=== PATIENT | female | born 1995 | race Caucasian/White ===

== ENCOUNTER 2019-04-13 16:44 | Emergency (ER) | payer SELFPAY ==
[~2019-04-13] VITALS: Ht 152.4 cm; Wt 75.9 kg
[2019-04-13 17:01] VITALS: TEMP 98.6
[2019-04-13] MEDS ORDERED: FOLIC ACID 11 MG/TA1 PO (17:05)
[2019-04-13] MEDS ORDERED: [UNRECOGNIZED DRUG - OTHER] (17:06)
[2019-04-13 17:23] LABS: COLLECTION METHOD CLEAN CATCH
[2019-04-13 17:34] LABS: MUCOUS Present /lpf; PH 6 (5-8); SQUAMOUS EPITHELIAL 0-2 /hpf; URINE APPEARANCE Hazy; URINE BACTERIA None Seen /hpf; URINE BILIRUBIN Negative (NEGATIVE); URINE BLOOD 1+ (NEGATIVE); URINE COLOR Yellow; URINE GLUCOSE Negative (NEGATIVE); URINE KETONE 2+ (NEGATIVE); URINE LEUKOCYTE ESTERASE Trace (NEGATIVE); URINE NITRATE Negative (NEGATIVE); URINE PROTEIN(semi-quant) 1+ (NEGATIVE); URINE UROBILINOGEN Negative (NEGATIVE)
[2019-04-13 17:36] LABS: BASO % 0.3 % (0.0-2.0); EOS % 0.3 % (0-4.0); GRAN # 6.5 (1.4-6.5); GRAN % 73.9 % (42.2-75.2); HEMATOCRIT 40.8 % (37.0-47.0); HEMOGLOBIN 13.1 g/dl (12.5-16.0); LYMPH # 1.7 (1.2-3.4); LYMPH % 19.1 % (20.0-51.0); MEAN CELL VOLUME 81 fl (80.0-100.0); MEAN CORPUSCULAR HEMOGLOBIN 26 pg (27.0-31.0); MEAN CORPUSCULAR HGB CONC 32 g/dl (33.0-37.0); MEAN PLATELET VOLUME 10.7 fl (7.4-10.4); MONO # 0.5 (0.1-0.6); MONO % 6.1 % (1.7-9.3); PLATELET COUNT 250 K/mm3 (130-400); RED BLOOD COUNT 5.04 M/mm3 (4.10-5.30); REDCELL DISTRIBUTION WIDTH-CV 14.6 % (11.5-14.5)
[2019-04-13 17:43] LABS: ALBUMIN 4.2 gm/dL (3.5-5.0); BILIRUBIN,TOTAL 0.5 mg/dL (0.0-1.0); CALCIUM 9.1 mg/dL (8.4-10.2); CREATININE, serum 0.52 (0.52-1.25); POTASSIUM 3.7 mmol/L (3.4-5.0); TOTAL PROTEIN 7.7 gm/dL (6.4-8.2)
[2019-04-13] MEDS ORDERED: UNISOM25 MG PO ×5 (20:45→20:50)
[2019-04-13] MEDS ORDERED: VITAMIN B-625 MG PO (20:48)
[2019-04-13] MEDS ORDERED: MACROBID 1100 MG/CAP PO (21:05)
[2019-04-13 21:12] VITALS: BP 98/71; PULSE 109
== END 2019-04-13 21:13 | disposition home or self-care (01) ==
LOC: COL.ER 16:44
PROVIDERS: Physician Assistant
DX: O26.891 Other specified pregnancy related conditions, first trimester (principal); O21.1 Hyperemesis gravidarum with metabolic disturbance; O99.810 Abnormal glucose complicating pregnancy; O23.91 Unspecified genitourinary tract infection in pregnancy, first trimester; N83.201 Unspecified ovarian cyst, right side; R10.30 Lower abdominal pain, unspecified; Z3A.01 Less than 8 weeks gestation of pregnancy
CPT/HCPCS: J2405; J2765; J7030

== ENCOUNTER 2019-05-21 21:55 | Emergency (ER) | payer OTHER ==
[~2019-05-21] VITALS: Ht 154.9 cm; Wt 69.5 kg
[~2019-05-21 21:55] MED LIST: FOLIC ACID 11 MG/TA1 PO; MACROBID 1100 MG/CAP PO; UNISOM25 MG PO; VITAMIN B-625 MG PO; [UNRECOGNIZED DRUG - OTHER]
[2019-05-21 22:01] VITALS: BP 125/60; TEMP 98.3
[2019-05-21] MEDS ORDERED: PRENATAL (22:52)
[2019-05-21] MEDS ORDERED: BONJESTA ER 201 EACH PO (22:53)
[2019-05-21 23:43] LABS: COLLECTION METHOD CLEAN CATCH
[2019-05-21 23:49] LABS: MUCOUS Present /lpf; PH 6 (5-8); URINE APPEARANCE Hazy; URINE BACTERIA Rare /hpf; URINE BILIRUBIN Negative (NEGATIVE); URINE BLOOD Negative (NEGATIVE); URINE COLOR Yellow; URINE GLUCOSE Negative (NEGATIVE); URINE KETONE 2+ (NEGATIVE); URINE LEUKOCYTE ESTERASE Negative (NEGATIVE); URINE NITRATE Negative (NEGATIVE); URINE PROTEIN(semi-quant) 1+ (NEGATIVE); URINE UROBILINOGEN Negative (NEGATIVE)
[2019-05-22 00:10] LABS: BASO % 0.2 % (0.0-2.0); EOS % 0.1 % (0-4.0); GRAN # 6.4 (1.4-6.5); GRAN % 75.9 % (42.2-75.2); HEMATOCRIT 36.8 % (37.0-47.0); HEMOGLOBIN 12.2 g/dl (12.5-16.0); LYMPH # 1.5 (1.2-3.4); LYMPH % 18.2 % (20.0-51.0); MEAN CELL VOLUME 81 fl (80.0-100.0); MEAN CORPUSCULAR HEMOGLOBIN 27 pg (27.0-31.0); MEAN CORPUSCULAR HGB CONC 33 g/dl (33.0-37.0); MONO # 0.4 (0.1-0.6); MONO % 5.2 % (1.7-9.3); PLATELET COUNT 254 K/mm3 (130-400); RED BLOOD COUNT 4.56 M/mm3 (4.10-5.30); REDCELL DISTRIBUTION WIDTH-CV 14.5 % (11.5-14.5)
[2019-05-22 00:22] LABS: ALBUMIN 3.8 gm/dL (3.5-5.0); BILIRUBIN,TOTAL 0.5 mg/dL (0.0-1.0); CALCIUM 8.9 mg/dL (8.4-10.2); CREATININE, serum 0.39 (0.52-1.25); POTASSIUM 3.8 mmol/L (3.4-5.0); TOTAL PROTEIN 7.1 gm/dL (6.4-8.2)
[2019-05-22] MEDS ORDERED: PHENERGAN 25 TA25 MG PO (01:11)
[2019-05-22 02:25] VITALS: PULSE 114
== END 2019-05-22 02:25 | disposition home or self-care (01) ==
LOC: COL.ER 21:55
PROVIDERS: Nurse Practitioner
DX: O26.891 Other specified pregnancy related conditions, first trimester (principal); O21.1 Hyperemesis gravidarum with metabolic disturbance; R10.2 Pelvic and perineal pain; Z3A.13 13 weeks gestation of pregnancy
CPT/HCPCS: J2550; J7030

== ENCOUNTER → 2019-12-09 | Outpatient (CLI) | payer OTHER ==
[~2019-12-09] MED LIST changes: +BONJESTA ER 201 EACH PO; +IBU800 M1 PO; +PERCOCET 325 MG1 TA2 PO; +PHENERGAN 25 TA25 MG PO; +PRENATAL
--- NOTE | 2019-12-09 14:50 | NUR ---
Pt, Natalee Mata, presents for outpatient consult with 13 day old baby boy, Oren Mata. She is accompanied by her spouse who contacted this LC because the baby was not latching onto the pt's breast for feeding. Oren was born by c/section to this first-time mom on [birth year] and weighed 8#11.7oz (3960 gms). Discharge weight is noted to be 8#9oz (3890 gms). FOB states baby was seen last week by Dr. Zaays but cannot recall Oren's weight other than it was 4% below weight. Today Oren weighs 8#7.7oz (3848 gms) for a 2% loss from . Current feed plan is 8x/day, attempting breast at a few daytime feedings but six feeding Oren receives 40-60ml EBM and at two feedings in the noc he receives 60ml formula. Pt is pumping 3x/day, collecting an estimated 300ml per day. Intake needs based on his weight is 700-750ml per day. assists pt with latching, which is not difficult but pt timid about pulling baby upto breast to create a latch vs. letting Oren try to latch without assistance. Low milk supply contributes to short feedings once attached. Pt is able to relatch with less assistance after the initial help by . After Oren had a total weight gain of 48gms (1.7oz). He is provided a bottle of formula after feeding and drinks the full 60ml. POC: 3-step feeding plan to help improve milk supply and Mickyds rate of gain. Handout provided with instructions; pt advised to offer breast every feeding, if he latches supplement 2oz after feeding. If no latching provide 3oz per feeding. Use EBM as available and formula for the remainder of volume needed. Pump after each feeding to improve milk supply. Family verbalizes understanding and intent to work on 3-step plan. F/U: Anticipate verbal update by phone at the end of this week, and at minimum a weight check in one week or another consult.
== END ==
LOC: LAC 13:40
DX: Z39.1 Encounter for care and examination of lactating mother (principal)

== ENCOUNTER 2020-10-24 21:56 | Emergency (ER) | payer OTHER ==
[~2020-10-24] VITALS: Ht 157.5 cm; Wt 75.0 kg
[2020-10-24 22:03] VITALS: TEMP 98.7
[2020-10-24 22:25] LABS: COLLECTION METHOD CLEAN CATCH
[2020-10-24 22:36] LABS: MUCOUS Present /lpf; PH 5 (5-8); SQUAMOUS EPITHELIAL 0-2 /hpf; URINE APPEARANCE Clear; URINE BACTERIA None Seen /hpf; URINE BILIRUBIN Negative (NEGATIVE); URINE BLOOD Negative (NEGATIVE); URINE COLOR Yellow; URINE GLUCOSE Negative (NEGATIVE); URINE KETONE Negative (NEGATIVE); URINE LEUKOCYTE ESTERASE Negative (NEGATIVE); URINE NITRATE Negative (NEGATIVE); URINE PROTEIN(semi-quant) 1+ (NEGATIVE); URINE RBC 0-2 /hpf
[2020-10-24 23:15] LABS: BASO % 0.3 % (0.0-2.0); EOS # 0.1 (0.0-0.7); EOS % 0.8 % (0-4.0); GRAN # 6.5 (1.4-6.5); GRAN % 69.8 % (42.2-75.2); HEMATOCRIT 40.1 % (37.0-47.0); HEMOGLOBIN 12.6 g/dl (12.5-16.0); LYMPH % 21.8 % (20.0-51.0); MEAN CELL VOLUME 83 fl (80.0-100.0); MEAN CORPUSCULAR HEMOGLOBIN 26 pg (27.0-31.0); MEAN CORPUSCULAR HGB CONC 31 g/dl (33.0-37.0); MEAN PLATELET VOLUME 10.3 fl (7.4-10.4); MONO # 0.7 (0.1-0.6); MONO % 7.1 % (1.7-9.3); PLATELET COUNT 303 K/mm3 (130-400); RED BLOOD COUNT 4.85 M/mm3 (4.10-5.30); REDCELL DISTRIBUTION WIDTH-CV 13.6 % (11.5-14.5)
[2020-10-24 23:25] LABS: ALBUMIN 3.9 gm/dL (3.5-5.0); BILIRUBIN,TOTAL 0.2 mg/dL (0.0-1.0); CREATININE, serum 0.75 (0.52-1.25); POTASSIUM 3.6 mmol/L (3.4-5.0); TOTAL PROTEIN 7.3 gm/dL (6.4-8.2)
[2020-10-25] MEDS ORDERED: LOMOTIL 0.025 M1 TAB PO (00:26)
[2020-10-25] MEDS ORDERED: LEVSIN0.125 M1 PO (00:26)
[2020-10-25] MEDS ORDERED: ZOFRAN ODT4 MG PO (00:26)
[2020-10-25 00:35] VITALS: BP 121/74; PULSE 84
== END 2020-10-25 00:35 | disposition home or self-care (01) ==
LOC: COL.ER 21:56
PROVIDERS: Emergency Medicine
DX: R55 Syncope and collapse (principal); R10.84 Generalized abdominal pain; R11.0 Nausea; R19.7 Diarrhea, unspecified
CPT/HCPCS: J1885; J2405; J7030; Q9967